=== PATIENT | male | born 1995 | race Hispanic/Latino ===

== ENCOUNTER 2022-05-13 06:53 | Emergency (ER) | payer SELFPAY ==
[2022-05-13] MEDS ORDERED: METHYLPREDNISOLONE 125 MG INJ ONE (07:34)
--- NOTE | 2022-05-27 16:27 | ER ---
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 Eyes became itchy last night and this morning noticed that they were swollen, has been taking Benadryl w/ some improvement of symtoms. Coronavirus screen: Vaccine status: Patient reports receiving the 2nd dose of the covid vaccine. Ebola Screen: No symptoms or risks identified at this time. Initial Sepsis Screen: Does the patient meet any 2 criteria? No. Patient's initial sepsis screen is negative. Does the patient have a suspected source of infection? No. Patient's initial sepsis screen is negative. Risk Assessment: Do you want to hurt yourself or someone else? Patient reports no desire to harm self or others. Onset of symptoms was May 13, 2022. 07:11 Method Of Arrival: Ambulatory 07:11 Acuity: LUC 4 ph Historical: - Allergies: 07:14 No Known Allergies; ph - PMHx: 07:14 None; ph - PSHx: 07:14 None; ph - Immunization history:: Adult Immunizations unknown. - Social history:: Smoking status: Patient reports the use of cigarette tobacco products, smokes one-half pack cigarettes per day. - Family history:: not pertinent. - Hospitalizations: : No recent hospitalization is reported. Screenin:43 [facility] ED Fall Risk Assessment (Adult) History of falling in the last 3 months, nj1 including since admission No falls in past 3 months (0 pts) Confusion or Disorientation No (0 pts) Intoxicated or Sedated No (0 pts) Impaired Gait No (0 pts) Mobility Assist Device Used No (0 pt) Altered Elimination No (0 pt) Score/Fall Risk Level 0 - 2 = Low Risk Oriented to surroundings, Maintained a safe environment, Educated pt \T\ family on fall prevention, incl call for assistance when getting out of bed, Hourly rounding (assess needs \T\ fall precautionary measures) done. Abuse screen: Denies threats or abuse. Denies injuries from another. Nutritional screening: No deficits noted. Tuberculosis screening: No symptoms or risk factors identified. Assessment: 07:41 General: Appears in no apparent distress. Behavior is calm, cooperative, appropriate nj for age. Pain: Denies pain. Neuro: No deficits noted. Level of Consciousness is awake, alert, obeys commands, Oriented to person, place, time, situation. Cardiovascular: No deficits noted. Respiratory: No deficits noted. Airway is patent Respiratory effort is even, unlabored, Respiratory pattern is regular. Derm: Rash noted that is itchy, Eyelids swollen, co itching. 08:16 Reassessment: Patient appears in no apparent distress at this time. No changes from [facility] previously documented assessment. Patient and/or family updated on plan of care and expected duration. Pain level reassessed. Patient is alert, oriented x 3, equal unlabored respirations, skin warm/dry/pink. Vital Signs: 07:11 BP 130 / 82; Pulse 71; Resp 18; Temp 98.1; Pulse Ox 100% on R/A; ph 08:17 BP 130 / 91; Pulse 70; Resp 18; Pulse Ox 100% on R/A; nj1 ED Course: 07:10 Patient arrived in ED. ph 07:11 Terry Tolbert MD is Attending Physician. rn 07:14 Triage completed. ph 07:15 Arm band placed on Patient placed in an exam room. ph 07:28 Mary Jo Yu RN is Primary Nurse. ph 07:43 Patient has correct armband on for positive identification. Bed in low position. Call [facility] light in reach. 07:43 No provider procedures requiring assistance completed. nj1 08:18 Patient did not have IV access during this emergency room visit. nj1 Administered Medications: 07:38 Drug: MethylPREDNISolone Sodium Succinate IM 125 mg Route: IM; Site: left vastus ph lateralis; 08:17 Follow up: Response: No adverse reaction nj1 Medication: 07:43 VIS not applicable for this client. nj1 Outcome: 07:33 Discharge ordered by . rn 08:17 Discharged to home ambulatory. nj1 08:17 Condition: stable 08:17 Discharge instructions given to patient, significant other, Instructed on discharge instructions, follow up and referral plans. medication usage, benefits of quitting smoking, Demonstrated understanding of instructions, follow-up care, medications, Prescriptions given X 1. 08:20 Patient left the ED. nj1 Signatures: Terry Tolbert MD MD rn YuMary Jo RN RN Makeda Hammonds RN RN nj1
--- NOTE | 2022-05-27 16:27 | EDPHYS ---
Physician Documentation [facility] Name: Fredrick Castillo Age: 26 yrs Sex: Male : 1995 Arrival Date: 05/13/2022 Time: 07:10 Bed 12 Private MD: ED Physician Terry Tolbert HPI: 05/13 07:22 This 26 yrs old Male presents to ER via Ambulatory with complaints of Rash - rn Itchy swollen eyes. 07:22 The patient's rash thought to be caused by an unknown cause. The rash is located on the rn face, right arm and left arm. The rash can be described as erythematous, urticarial. Onset: The symptoms/episode began/occurred 2 day(s) ago. Associated signs and symptoms: Pertinent positives: itching, Pertinent negatives: fever, swelling of lips, swelling of throat, swelling of tongue. Severity of symptoms: At their worst the symptoms were moderate in the emergency department the symptoms have improved. Treatment given at home: Benadryl. The patient has not recently seen a physician. Pt reports rash, itching, and this morning progressed to swelling around both eyes. 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 . Historical: - Allergies: 07:14 No Known Allergies; ph - PMHx: 07:14 None; ph - PSHx: 07:14 None; ph - Immunization history:: Adult Immunizations unknown. - Social history:: Smoking status: Patient reports the use of cigarette tobacco products, smokes one-half pack cigarettes per day. - Family history:: not pertinent. - Hospitalizations: : No recent hospitalization is reported. ROS: 07:22 Constitutional: Negative for fever, chills, and weight loss, Eyes: Negative for injury, rn pain, + swelling of eyelids ENT: No oral swelling or difficulty swallowing Neck: Negative for injury, pain, and swelling, Cardiovascular: Negative for chest pain, palpitations, and edema, Respiratory: Negative for shortness of breath, cough, wheezing, and pleuritic chest pain, Abdomen/GI: Negative for abdominal pain, nausea, vomiting, diarrhea, and constipation, Skin: + rash and itching Exam: 07:22 Constitutional: This is a well developed, well nourished patient who is awake, alert, rn and in no acute distress. Eyes: + periorbital swelling without redness or warmth ENT: NO oral swelling, no stridor Respiratory: Speaking full sentences, unlabored. No increased work of breathing, no retractions or nasal flaring. Skin: Warm, dry, + forearms with dry skin and eythematous/urticarial lesions, no fluctuance, no pustules. Vital Signs: 07:11 BP 130 / 82; Pulse 71; Resp 18; Temp 98.1; Pulse Ox 100% on R/A; ph 08:17 BP 130 / 91; Pulse 70; Resp 18; Pulse Ox 100% on R/A; nj1 MDM: 07:11 Patient medically screened. rn 07:22 Differential diagnosis: allergic reaction, dermatitis, chemical dermatitis. Data rn reviewed: vital signs, nurses notes, and as a result, I will discharge patient. Counseling: I had a detailed discussion with the patient and/or guardian regarding: the historical points, exam findings, and any diagnostic results supporting the discharge/admit diagnosis, the need for outpatient follow up, to return to the emergency department if symptoms worsen or persist or if there are any questions or concerns that arise at home. Special discussion: I discussed with the patient/guardian in detail that at this point there is no indication for admission to the hospital. It is understood, however, that if the symptoms persist or worsen the patient needs to return immediately for re-evaluation. Administered Medications: 07:38 Drug: MethylPREDNISolone Sodium Succinate IM 125 mg Route: IM; Site: left vastus ph lateralis; 08:17 Follow up: Response: No adverse reaction nj1 Disposition Summary: 05/13/22 07:33 Discharge Ordered Location: Home rn Problem: new rn Symptoms: have improved rn Condition: Stable rn Diagnosis - Allergic contact dermatitis, unspecified cause rn Followup: rn - With: Private Physician - When: As needed - Reason: Recheck today's complaints, Re-evaluation by your physician Discharge Instructions: - Discharge Summary Sheet rn - Contact Dermatitis rn Forms: - Medication Reconciliation Form rn - Thank You Letter 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
== END 2022-05-13 08:20 | disposition home or self-care (01) ==
LOC: ER 06:53 → EDBD 06:53 → ER 08:20
DX: L23.9 Allergic contact dermatitis, unspecified cause (principal); F17.210 Nicotine dependence, cigarettes, uncomplicated
CPT/HCPCS: 96372; 99283; J2930